=== PATIENT | female | born 1985 | race Caucasian/White ===

== ENCOUNTER 2018-01-27 21:23 | Emergency (ER) | payer MEDICAID ==
[~2018-01-27] VITALS: Ht 152.4 cm; Wt 66.7 kg
[2018-01-27 21:46] VITALS: BP 116/75
--- NOTE | 2018-01-27 21:52 | NUR ---
PT PRESENTS TO ED WITH LOWE, N/V, AND SEIZURES X2 HRS AGO. PT STATES LOWE PAIN 10/10 WITH N/V. SHE STATES SEIZURE WAS WITNESSED AT HOME BY FATHER AND WAS 30 SEC LONG. SEIZURE PRECAUTIONS IN PLACE. A&OX4. LUNGS CLEAR BILAT. PT STATES RIGHT UPPER MOLAR PAIN AFTER SEIZURE. VSS AT THIS TIME. POSITIONED IN BE DWITH HOB ELEVATED. ER AWARE. CONTINUE TO MONITOR.
--- NOTE | 2018-01-27 21:52 | NUR ---
TO LOBBY A/W BED, KANDIS MIDDLETON NOTED
[2018-01-27] MEDS ORDERED: NACL 0.9% 1,000 ML IV ONE (22:50)
[2018-01-27] MEDS ORDERED: HYDROmorphone PFS 2 MG/ML SYR IVP ONE (22:50)
[2018-01-27] MEDS ORDERED: ONDANSETRON 4 MG/2 ML VIAL IVP ONE (22:50)
[2018-01-27 23:43] LABS: BASOPHILS % (AUTO) 0.4 % (0.0-2.0); EOSINOPHILS # (AUTO) 0.2 K/uL (0-0.4); EOSINOPHILS % (AUTO) 1.9 % (0.0-4.0); HEMATOCRIT 42.2 % (36-48); HEMOGLOBIN 14.1 g/dL (12.0-16.0); LYMPHOCYTES # (AUTO) 2.4 K/uL (2.5-16.5); LYMPHOCYTES % (AUTO) 28.7 % (20.5-51.1); MEAN CORPUSCULAR HEMOGLOBIN 30 pg (27-31); MEAN CORPUSCULAR HGB CONC 34 g/dL (33-37); MEAN CORPUSCULAR VOLUME 88.6 fL (80-94); MONOCYTES # (AUTO) 0.4 K/uL (0.8-1.0); MONOCYTES % (AUTO) 4.7 % (1.7-9.3); NEUTROPHILS # (AUTO) 5.4 K/uL (1.8-7.7); NEUTROPHILS % (AUTO) 64.3 % (42.2-75.2); PLATELET COUNT (AUTO) 424 K/uL (140-450); RED BLOOD CELL COUNT(AUTO) 4.76 MIL/uL (4.20-5.40); RED CELL DISTRIBUTION WIDTH 14.3 % (11.6-13.7); WHITE BLOOD COUNT (AUTO) 8.5 K/uL (4.8-10.8)
[2018-01-27 23:56] LABS: ALBUMIN 4.1 g/dL (3.4-5.0); ANION GAP 12.6 (8-16); CARBON DIOXIDE 25.6 mmol/L (21-32); CREATININE 0.6 mg/dL (0.6-1.3); POTASSIUM 4.2 mmol/L (3.5-5.1); TOTAL BILIRUBIN 0.4 mg/dL (0.0-1.0)
[2018-01-28 00:16] LABS: APPEARANCE,URINE CLEAR (CLEAR); BILIRUBIN,URINE NEGATIVE (NEGATIVE); BLOOD, URINE NEGATIVE (NEGATIVE); COLOR,URINE YELLOW (YELLOW); LEUKOCYTE ESTERASE ,URINE NEGATIVE (NEGATIVE); NITRITE, URINE NEGATIVE (NEGATIVE); UGLUCOSE NEGATIVE (NEGATIVE)
[2018-01-28 00:24] LABS: BARBITURATE, URINE NEG. ng/ml (NEG <=200); BENZODIAZEPINE, URINE NEG. ng/mL (NEG <=200); CANNABINOID, URINE NEG. ng/mL (NEG <=50); COCAINE, URINE NEG. ng/mL (NEG <=300); OPIATE, URINE POS. ng/mL (NEG <=2000); PHENCYCLIDINE SCREEN,URINE NEG. ng/mL (NEG <=25)
[2018-01-28 00:48] VITALS: BP 107/77
--- NOTE | 2018-01-28 00:48 | NUR ---
LATE NOTE ENTRY: NS ENDED AT 0048
== END 2018-01-28 00:49 | disposition home or self-care (01) ==
LOC: MED 21:23
DX: R11.2 Nausea with vomiting, unspecified (principal); R56.9 Unspecified convulsions; R51 Headache; Z88.8 Allergy status to other drugs, medicaments and biological substances; Z88.6 Allergy status to analgesic agent
CPT/HCPCS: 36415; 80053; 80173; 80305; 81002; 81003; 81025; 85025; 96361; 96374; 96375; 99284; J1170; J2405; J7030

== ENCOUNTER 2018-03-02 01:36 | Emergency (ER) | payer MEDICAID, MEDICARE ==
[~2018-03-02] VITALS: Ht 152.4 cm; Wt 66.2 kg
[2018-03-02 01:50] VITALS: BP 135/101
--- NOTE | 2018-03-02 02:00 | NUR ---
Patient ambulated to bed 12. RN evaluating patient at bedside.
--- NOTE | 2018-03-02 02:15 | NUR ---
PT BIB SELF C/O LOWER ABD PAIN SINCE 2PM YESTERDAY. ABD IS ROUND, SOFT, TENDER TO LOWER QUADRANTS. PT DENIES N/V/D/ OR CONSTIPATION. PT SITTING IN BED, GRABBING STOMACH, POSITIONED TO COMFORT. HX HODGKINS LYMPHOMA, TEMPORAL ARTHRITIS
[2018-03-02] MEDS ORDERED: ONDANSETRON 4 MG ODT PO ONE (03:25)
[2018-03-02] MEDS ORDERED: fentaNYL 0.05 MG/ML VIAL IM ONE (03:25)
[2018-03-02] MEDS ORDERED: KETOROLAC 60 MG/2 ML VIAL IM ONE (03:25)
--- NOTE | 2018-03-02 03:43 | NUR ---
PT NOT LOCATED IN ER BED 12, PT ELOPED AT THIS TIME.
[2018-03-02 03:58] LABS: BARBITURATE, URINE NEG. ng/ml (NEG <=200); BENZODIAZEPINE, URINE NEG. ng/mL (NEG <=200); CANNABINOID, URINE NEG. ng/mL (NEG <=50); COCAINE, URINE NEG. ng/mL (NEG <=300); OPIATE, URINE POS. ng/mL (NEG <=2000); PHENCYCLIDINE SCREEN,URINE NEG. ng/mL (NEG <=25)
[2018-03-02 04:10] LABS: APPEARANCE,URINE SLIGHTLY HAZY (CLEAR); BILIRUBIN,URINE NEGATIVE (NEGATIVE); BLOOD, URINE NEGATIVE (NEGATIVE); COLOR,URINE YELLOW (YELLOW); LEUKOCYTE ESTERASE ,URINE NEGATIVE (NEGATIVE); NITRITE, URINE NEGATIVE (NEGATIVE); PH,URINE 6.5 (5.0-9.0); UGLUCOSE NEGATIVE (NEGATIVE)
[2018-03-02 04:12] LABS: RBC,URINE 0-5 (RARE) /HPF (0-5); WBC,URINE 0-5 (RARE) /HPF (0-5)
== END 2018-03-02 03:43 | disposition left against medical advice (07) ==
LOC: MED 01:36
DX: R10.9 Unspecified abdominal pain (principal); Z79.899 Other long term (current) drug therapy
CPT/HCPCS: 80305; 81001; 81025; 99284

== ENCOUNTER 2019-03-30 10:47 | Emergency (ER) | payer MEDICAID, MEDICARE ==
[~2019-03-30] VITALS: Ht 152.4 cm; Wt 64.9 kg
[2019-03-30 10:52] VITALS: BP 123/84
--- NOTE | 2019-03-30 10:57 | NUR ---
PT TAKEN TO ER BED 11
--- NOTE | 2019-03-30 11:03 | NUR ---
DR BRYAN AT BEDSIDE
--- NOTE | 2019-03-30 11:07 | NUR ---
C/O CONSTANT AND SEVERE HEADACHE WITH N/V X YESTERDAY. NO ALLEVIATING FACTORS. PER PTS PCP, HER LYMPHOMA HAS RETURNED AND IS THE REASON SHE IS HAVING THE HEADACHES. PATIENT HAS NOT BEEN ABLE TO KEEP DOWN HER PAIN MEDICATIONS DUE TO THE VOMITING. REQUESTING PAIN MEDICATIONS AT THIS TIME. TACHY AT 104. PT ALERT AND AWAKE. AMBULATORY WITH STEADY GAIT. BED IS DOWN, LOCKED, BED RAIL X 1, ERMD TO SEE PT. LAST SEIZURE 2 DAYS AGO. MED HX: SEIZURE, HODGKIN LYMPHOMA RX- DILAUDID
[2019-03-30] MEDS ORDERED: MORPHINE SULFATE 4 MG/ML SYR IM ONE (11:30)
--- NOTE | 2019-03-30 11:40 | NUR ---
MORPHINE IM ADMINISTERED BY LANRE RN
--- NOTE | 2019-03-30 12:09 | NUR ---
PT STATES PAIN IS 7/10 AT THIS TIME ADN STILL HURTING. PER DR BRYAN, PT NEEDS TO FOLLOW UP WITH PCP
[2019-03-30 12:10] VITALS: BP 118/81
--- NOTE | 2019-03-30 12:10 | NUR ---
Patient discharged with v/s stable. Written and verbal after care instructions given and explained REGARDING HODGKINS DISEASE. PT REQUESTING PAIN MEDICATIONS. PER DR BRYAN, PT IS TO TAKE HER PRESCRIPTION OF DILUADID AT HOME Patient verbalized understanding. Ambulatory with steady gait. All questions addressed prior to discharge. Advised to CONTINUE FOLLOWING UP WITH PCP AND ONCOLOGIST PT GIVEN EXCUSE FOR WORK
[2019-03-30 12:22] LABS: BARBITURATE, URINE NEG. ng/ml (NEG <=200); BENZODIAZEPINE, URINE NEG. ng/mL (NEG <=200); CANNABINOID, URINE NEG. ng/mL (NEG <=50); COCAINE, URINE NEG. ng/mL (NEG <=300); OPIATE, URINE NEG. ng/mL (NEG <=2000); PHENCYCLIDINE SCREEN,URINE NEG. ng/mL (NEG <=25)
== END 2019-03-30 12:10 | disposition home or self-care (01) ==
LOC: MED 10:47
DX: R51 Headache (principal); C81.98 Hodgkin lymphoma, unspecified, lymph nodes of multiple sites; Z86.69 Personal history of other diseases of the nervous system and sense organs; Z98.890 Other specified postprocedural states; Z88.8 Allergy status to other drugs, medicaments and biological substances
CPT/HCPCS: 80305; 81025; 96372; 99283; J2270

== ENCOUNTER 2019-08-13 15:53 | Emergency (ER) | payer BC, MEDICAID ==
[~2019-08-13] VITALS: Ht 152.4 cm; Wt 62.6 kg
[2019-08-13 15:54] VITALS: BP 119/84
--- NOTE | 2019-08-13 16:10 | NUR ---
AFTER TRIAGING, PT STATES SHE NEEDS TO GO CHECK ON HER SON IN THE CAR
--- NOTE | 2019-08-13 16:24 | NUR ---
PATIENT LEFT WITHOUT BEING SEEN BY DR. IRCE. NO FURTHER CARE PROVIDED FOR PATIENT.
--- NOTE | 2019-08-13 16:24 | NUR ---
CALLED IN ER LOBBY FOR PT, NO ANSWER
== END 2019-08-13 16:24 | disposition left against medical advice (07) ==
LOC: MED 15:53
DX: R51 Headache (principal); R11.10 Vomiting, unspecified; C81.90 Hodgkin lymphoma, unspecified, unspecified site; Z53.21 Procedure and treatment not carried out due to patient leaving prior to being seen by health care provider

== ENCOUNTER 2020-01-25 17:32 | Emergency (ER) | payer MEDICAID ==
[~2020-01-25] VITALS: Ht 152.4 cm; Wt 61.2 kg
[2020-01-25 17:47] VITALS: BP 128/86
--- NOTE | 2020-01-25 17:47 | NUR ---
Pt taken to bed 4.
--- NOTE | 2020-01-25 17:58 | NUR ---
Patient being evaluated by Dr. Brown at bedside.
--- NOTE | 2020-01-25 18:00 | NUR ---
Pt c/o pounding headache with n/v x yesterday. Pt has hx of remission hodgkin's/glioblastoma, seizure; states pain is 10/10 at this time and cannot bear down anything. SKIN IS PINK/WARM/DRY; AAOX4 WITH EVEN AND STEADY GAIT; LUNGS CLEAR BL; HR EVEN AND REGULAR; PT DENIES ANY FEVER, CP, SOB, OR COUGH AT THIS TIME; VSS BUT PT PRESENTS WITH TACHYCARDIA; PATIENT POSITIONED FOR COMFORT; HOB ELEVATED; BEDRAILS UP X2; BED DOWN. ER MD MADE AWARE OF PT STATUS.
[2020-01-25] MEDS ORDERED: diphenhydrAMINE 50 MG/ML VIAL IVP ONE (18:10)
[2020-01-25] MEDS ORDERED: NACL 0.9% 500 ML IV ONE (18:10)
[2020-01-25] MEDS ORDERED: HYDROmorphone PFS 2 MG/ML SYR IVP ONE (18:10)
--- NOTE | 2020-01-25 19:09 | NUR ---
RECEIVED REPORT FROM JOE ZAMUDIO FOR CONTINUITY OF CARE.
--- NOTE | 2020-01-25 19:13 | NUR ---
Pt report given to JOE PAPPAS. Transfer of care at this time.
--- NOTE | 2020-01-25 19:20 | NUR ---
IV removed, catheter intact and site benign. Applied folded 4x4 gauze and tape to stop bleeding.
[2020-01-25 19:23] VITALS: BP 122/85
--- NOTE | 2020-01-25 19:23 | NUR ---
Patient discharged with v/s stable. Written and verbal after care instructions given and explained. Patient alert, oriented and verbalized understanding of instructions. Ambulatory with steady gait. All questions addressed prior to discharge. ID band removed. Patient advised to follow up with PMD. Rx of DILAUDID & NARCAN given. Patient educated on indication of medication including possible reaction and side effects. Opportunity to ask questions provided and answered.
== END 2020-01-25 19:23 | disposition home or self-care (01) ==
LOC: MED 17:32
DX: G43.909 Migraine, unspecified, not intractable, without status migrainosus (principal); R11.2 Nausea with vomiting, unspecified; Z85.71 Personal history of Hodgkin lymphoma; Z88.8 Allergy status to other drugs, medicaments and biological substances
CPT/HCPCS: 70450; 81002; 81025; 96374; 96375; 99284; J1170; J1200; J7030

== ENCOUNTER 2020-01-26 17:26 | Emergency (ER) | payer MEDICAID ==
[~2020-01-26] VITALS: Ht 152.4 cm; Wt 61.2 kg
[2020-01-26 17:33] VITALS: BP 122/85
--- NOTE | 2020-01-26 19:03 | NUR ---
34 YO FEMALE C/O N/V, SEVERE HEADACHE X YESTERDAY. SEEN HERE YESTERDAY SAME S/S. MED HX: HODGKINS LYMPHOMA, GLIOBLASTOMA, SEIZURE
[2020-01-26] MEDS ORDERED: NACL 0.9% 1,000 ML IV ONE (19:20)
[2020-01-26] MEDS ORDERED: HALOPERIDOL IM 5 MG/ML VIAL IM ONE (19:20)
[2020-01-26] MEDS ORDERED: diphenhydrAMINE 50 MG/ML VIAL IVP ONE (19:20)
[2020-01-26] MEDS ORDERED: HALOPERIDOL IM 5 MG/ML VIAL ONE (20:28)
[2020-01-26] MEDS ORDERED: diphenhydrAMINE 50 MG/ML VIAL ONE (20:28)
[2020-01-26] MEDS ORDERED: HYDROmorphone 1 MG/ML AMP ONE (20:50)
== END 2020-01-26 22:25 | disposition home or self-care (01) ==
LOC: MED 17:26
DX: G43.909 Migraine, unspecified, not intractable, without status migrainosus (principal); R11.2 Nausea with vomiting, unspecified; R50.9 Fever, unspecified
CPT/HCPCS: 81025; 99282; J1170; J1200; J1630

== ENCOUNTER 2020-01-28 18:59 | Emergency (ER) | payer MEDICAID ==
[~2020-01-28] VITALS: Ht 152.4 cm; Wt 61.2 kg
[2020-01-28 19:11] VITALS: BP 124/76
--- NOTE | 2020-01-28 19:16 | NUR ---
ambulated to bed 03 with steady gait.
--- NOTE | 2020-01-28 19:40 | NUR ---
PT AAOX4 FOLLOWING COMMANDS, C/O LOWE 02/20, PT HAS HX HODGKINS LYMPHOMA, GLIOBLASTOMA WITH " PSUEDO SEIZURES" PER PT. DENIES LIGHTHEADEDNESS @ THIS TIME. PALPABLE PULSES, LUNG CLEAR EVEN UNLABORED. SKIN INTACT. CARLEEN N/V/D. JOERNEY LOCKED IN LOWEST POSITION, SZR PRECAUTIONS IN PLACE HX: HODGKINS LYMPHOMA, GLIOBLASTOMA RX: PT UNABLE TO REMEMBER
[2020-01-28] MEDS ORDERED: MORPHINE SULFATE 2 MG/ML SYR IVP ONE (20:00)
[2020-01-28] MEDS ORDERED: diphenhydrAMINE 50 MG/ML VIAL IVP ONE (20:00)
[2020-01-28] MEDS ORDERED: MORPHINE SULFATE 2 MG/ML SYR IM ONE (20:40)
[2020-01-28] MEDS ORDERED: diphenhydrAMINE 50 MG/ML VIAL IM ONE (20:40)
[2020-01-28 20:50] VITALS: BP 121/72
--- NOTE | 2020-01-28 20:50 | NUR ---
Patient discharged with v/s stable. Written and verbal after care instructions given and explained. Patient verbalized understanding. Ambulatory with steady gait. All questions addressed prior to discharge. Advised to follow up with PMD.
== END 2020-01-28 20:50 | disposition home or self-care (01) ==
LOC: MED 18:59
DX: G43.909 Migraine, unspecified, not intractable, without status migrainosus (principal); R56.9 Unspecified convulsions; Z85.9 Personal history of malignant neoplasm, unspecified; Z88.8 Allergy status to other drugs, medicaments and biological substances; Z88.6 Allergy status to analgesic agent; Z98.890 Other specified postprocedural states
CPT/HCPCS: 96372; 99284; J1200; J2270

== ENCOUNTER 2020-03-20 14:12 | Emergency (ER) | payer MEDICAID ==
[~2020-03-20] VITALS: Ht 152.4 cm; Wt 63.5 kg
[2020-03-20 14:20] VITALS: BP 126/81
--- NOTE | 2020-03-20 14:25 | NUR ---
PATIENT PRESENTS TO ED WITH C/O HEADACHE, HEAD PAIN . PT STATES HISTORY OF CRANIOTOMY X 2 . DENIES N/V/D; SKIN IS PINK/WARM/DRY; AAOX4 WITH EVEN AND STEADY GAIT; LUNGS CLEAR BL; HR EVEN AND REGULAR; PT DENIES ANY FEVER, CP, SOB, OR COUGH AT THIS TIME; VSS; PATIENT POSITIONED FOR COMFORT; HOB ELEVATED; BEDRAILS UP X2; BED DOWN. ER MD MADE AWARE OF PT STATUS.
--- NOTE | 2020-03-20 14:30 | NUR ---
DR. RAMSAY AT BEDSIDE FOR EXAM
[2020-03-20] MEDS ORDERED: diphenhydrAMINE 50 MG/ML VIAL IVP ONE (14:40)
[2020-03-20] MEDS ORDERED: NACL 0.9% 1,000 ML IV ONE (14:40)
[2020-03-20] MEDS ORDERED: HYDROmorphone PFS 2 MG/ML SYR IVP ONE ×2 (14:40→16:30)
--- NOTE | 2020-03-20 15:50 | NUR ---
PT WITH POOR VENOUS ACCESS. 24 G SL ESTABLISHED RIGHT WRIST
[2020-03-20 17:15] VITALS: BP 126/81
== END 2020-03-20 17:19 | disposition home or self-care (01) ==
LOC: MED 14:12
DX: G43.909 Migraine, unspecified, not intractable, without status migrainosus (principal); C85.90 Non-Hodgkin lymphoma, unspecified, unspecified site; R56.9 Unspecified convulsions; Z88.6 Allergy status to analgesic agent; Z88.8 Allergy status to other drugs, medicaments and biological substances; Z85.9 Personal history of malignant neoplasm, unspecified
CPT/HCPCS: 96374; 96375; 99284; J1170; J1200

== ENCOUNTER 2020-03-21 11:17 | Emergency (ER) | payer MEDICAID ==
[~2020-03-21] VITALS: Ht 162.6 cm; Wt 63.5 kg
--- NOTE | 2020-03-21 11:21 | NUR ---
PT TAKEN TO BED 11.
[2020-03-21 11:27] VITALS: BP 134/96
--- NOTE | 2020-03-21 11:32 | NUR ---
PATIENT ELOPED FROM FACILITY. DISCHARGE INSTRUCTIONS NOT GIVEN TO PATIENT. NOTIFIED.
== END 2020-03-21 11:36 | disposition left against medical advice (07) ==
LOC: MED 11:17
DX: G89.29 Other chronic pain (principal); G43.909 Migraine, unspecified, not intractable, without status migrainosus
CPT/HCPCS: 99281

== ENCOUNTER 2020-05-10 13:52 | Emergency (ER) | payer MEDICAID ==
--- NOTE | 2020-05-10 14:58 | NUR ---
pt left without beeing seen or triaged. Dr. Naranjo made aware.
== END 2020-05-10 14:38 | disposition left against medical advice (07) ==
LOC: MED 13:52
DX: Z53.21 Procedure and treatment not carried out due to patient leaving prior to being seen by health care provider (principal)

== ENCOUNTER 2020-10-31 10:13 | Emergency (ER) | payer MEDICAID ==
[~2020-10-31] VITALS: Ht 152.4 cm; Wt 63.5 kg
[2020-10-31 10:19] VITALS: BP 121/89
[2020-10-31] MEDS ORDERED: ONDANSETRON 4 MG/2 ML VIAL IVP ONE (10:55)
[2020-10-31] MEDS ORDERED: diphenhydrAMINE 50 MG/ML VIAL IVP ONE ×2 (10:55→12:45)
[2020-10-31] MEDS ORDERED: NACL 0.9% 1,000 ML IV ONE (10:55)
[2020-10-31] MEDS ORDERED: HYDROmorphone PFS 2 MG/ML SYR IVP ONE ×2 (10:55→12:45)
[2020-10-31 14:20] LABS: ALBUMIN 3.3 g/dL (3.4-5.0); ANION GAP 18.6 (8-16); CARBON DIOXIDE 16.4 mmol/L (21-32); CREATININE 0.5 mg/dL (0.6-1.3); MAGNESIUM 1.8 mg/dL (1.8-2.4); PHOSPHORUS 2.7 mg/dL (2.5-4.9); TOTAL BILIRUBIN 0.4 mg/dL (0.0-1.0)
[2020-10-31 14:25] VITALS: BP 115/70
[2020-10-31 14:25] LABS: BILIRUBIN,URINE NEGATIVE (NEGATIVE); BLOOD, URINE 2+ (NEGATIVE); COLOR,URINE YELLOW (YELLOW); LEUKOCYTE ESTERASE ,URINE NEGATIVE (NEGATIVE); NITRITE, URINE NEGATIVE (NEGATIVE); UGLUCOSE NEGATIVE (NEGATIVE)
[2020-10-31 14:52] LABS: APPEARANCE,URINE SLIGHTLY HAZY (CLEAR)
[2020-10-31 14:56] LABS: RBC,URINE 0-5 /HPF (0-5); WBC,URINE 0-5 /HPF (0-5)
== END 2020-10-31 14:25 | disposition home or self-care (01) ==
LOC: MED 10:13
DX: R51.9 Headache, unspecified (principal); R11.2 Nausea with vomiting, unspecified; Z98.890 Other specified postprocedural states; Z85.71 Personal history of Hodgkin lymphoma; Z88.8 Allergy status to other drugs, medicaments and biological substances
CPT/HCPCS: 36415; 80053; 81001; 81025; 83690; 83735; 84100; 87086; 96361; 96374; 96375; 96376; 99284; J1170; J1200; J2405; J7030

== ENCOUNTER 2020-11-01 18:39 | Emergency (ER) | payer MEDICAID ==
[~2020-11-01] VITALS: Ht 152.4 cm; Wt 69.4 kg
[2020-11-01 18:50] VITALS: BP 133/91
--- NOTE | 2020-11-01 19:20 | NUR ---
See patient assessment for more information. Patient laying in bed, locked in lowest position, HOB elevated, x2 siderails up for patient safety, seizure precautions in place. Breathing even and unlabored. NAD noted, will continue to monitor. at bedside.
--- NOTE | 2020-11-01 19:26 | NUR ---
Dr. Reynoso examining patient.
[2020-11-01] MEDS ORDERED: MORPHINE SULFATE 4 MG/ML SYR IVP ONE ×2 (19:30→20:20)
[2020-11-01] MEDS ORDERED: ONDANSETRON 4 MG/2 ML VIAL IVP ONE ×2 (19:30→20:20)
[2020-11-01] MEDS ORDERED: NACL 0.9% 1,000 ML IV ONE (19:30)
[2020-11-01] MEDS ORDERED: diphenhydrAMINE 50 MG/ML VIAL IVP ONE ×2 (19:30→20:20)
--- NOTE | 2020-11-01 21:25 | NUR ---
ERMD made aware of patients headache 02/20, per ERMD patient ok to discharge, no new orders.
[2020-11-01 21:30] VITALS: BP 133/91
--- NOTE | 2020-11-01 21:30 | NUR ---
Patient discharged with v/s stable. Written and verbal after care instructions given and explained. Patient verbalized understanding. Ambulatory with steady gait accompanied by . All questions addressed prior to discharge. Advised to follow up with PMD.
== END 2020-11-01 21:30 | disposition home or self-care (01) ==
LOC: MED 18:39
DX: R51.9 Headache, unspecified (principal); R11.2 Nausea with vomiting, unspecified; Z88.8 Allergy status to other drugs, medicaments and biological substances; Z88.5 Allergy status to narcotic agent
CPT/HCPCS: 96361; 96374; 96375; 96376; 99284; J1200; J2270; J2405; J7030

== ENCOUNTER 2020-11-03 10:02 | Emergency (ER) | payer MEDICAID ==
[~2020-11-03] VITALS: Ht 152.4 cm; Wt 68.0 kg
[2020-11-03 10:07] VITALS: BP 116/80
[2020-11-03] MEDS ORDERED: MORPHINE SULFATE 4 MG/ML SYR IVP ONE ×2 (10:50→11:55)
[2020-11-03] MEDS ORDERED: ONDANSETRON 4 MG/2 ML VIAL IVP ONE (10:50)
[2020-11-03] MEDS ORDERED: diphenhydrAMINE 50 MG/ML VIAL IVP ONE (10:50)
[2020-11-03 12:22] VITALS: BP 117/84
== END 2020-11-03 12:23 | disposition home or self-care (01) ==
LOC: MED 10:02
DX: R51.9 Headache, unspecified (principal); F11.20 Opioid dependence, uncomplicated; Z88.5 Allergy status to narcotic agent; Z88.8 Allergy status to other drugs, medicaments and biological substances; Z98.890 Other specified postprocedural states; Z85.71 Personal history of Hodgkin lymphoma
CPT/HCPCS: 96374; 96375; 96376; 99284; J1200; J2270; J2405

== ENCOUNTER 2020-11-17 01:40 | Emergency (ER) | payer MEDICAID ==
[~2020-11-17] VITALS: Ht 152.4 cm; Wt 68.0 kg
[2020-11-17 02:00] VITALS: BP 132/89
[2020-11-17] MEDS ORDERED: ONDANSETRON 4 MG ODT PO ONE (03:15)
[2020-11-17] MEDS ORDERED: MORPHINE SULFATE 4 MG/ML SYR IM ONE (03:15)
[2020-11-17 03:31] VITALS: BP 132/89
== END 2020-11-17 03:30 | disposition home or self-care (01) ==
LOC: MED 01:40
DX: R51.9 Headache, unspecified (principal); K08.89 Other specified disorders of teeth and supporting structures; Z85.71 Personal history of Hodgkin lymphoma; Z88.8 Allergy status to other drugs, medicaments and biological substances; Z88.5 Allergy status to narcotic agent
CPT/HCPCS: 96372; 99283; J2270; Q0162; Q0163

== ENCOUNTER 2021-06-27 09:11 | Emergency (ER) | payer OTHER, MEDICAID ==
[~2021-06-27] VITALS: Ht 147.3 cm; Wt 76.2 kg
[2021-06-27 09:29] VITALS: BP_SYST 136
--- NOTE | 2021-06-27 09:46 | NUR ---
PT AMBULATED TO ER BED 14.
[2021-06-27] MEDS ORDERED: HYDROmorphone PFS 2 MG/ML SYR IVP ONE (10:15)
--- NOTE | 2021-06-27 10:34 | NUR ---
pt c/o headache with n/v x1 day. pt hx of ca received chemo x2 weeks ago. us guided iv inserted to right upper arm #[id number] blood drawn and medicated per order.
--- NOTE | 2021-06-27 10:40 | NUR ---
pt requesting to leave ama after receiving dilaudid IV. Dr Urbano aware. pt signed ama form. IV removed no active bleeding noted. pt ambulates with steady gait. in lobby for safe dc.
--- NOTE | 2021-06-27 10:45 | NUR ---
Patient does not wish to proceed with medical care recommended by DR GUARDADO. Patient given information related to possible complications, up to and including , which could occur as a result of leaving hospital at this time. Patient verbalizes understanding of risks involved leaving against medical advice. Patient has signed AMA form.
--- NOTE | 2021-06-27 10:50 | NUR ---
[place] mei in ED - 06/27/21 at 1053 by [email or web address] pt requesting to leave ama after receiving dilaudid. iv removed no active bleeding. pt ambulates with steady gait.
[2021-06-27 10:53] LABS: BASOPHILS # (AUTO) 0.1 K/uL (0.00-0.22); BASOPHILS % (AUTO) 0.7 % (0.0-2.0); EOSINOPHILS # (AUTO) 0.1 K/uL (0-0.4); EOSINOPHILS % (AUTO) 1.7 % (0.0-4.0); HEMATOCRIT 37.8 % (36-48); LYMPHOCYTES # (AUTO) 1.9 K/uL (2.5-16.5); LYMPHOCYTES % (AUTO) 24.5 % (20.5-51.1); MEAN CORPUSCULAR HEMOGLOBIN 31 pg (27-31); MEAN CORPUSCULAR HGB CONC 34 g/dL (33-37); MEAN CORPUSCULAR VOLUME 91.1 fL (80-94); MONOCYTES # (AUTO) 0.4 K/uL (0.8-1.0); MONOCYTES % (AUTO) 5.7 % (1.7-9.3); NEUTROPHILS # (AUTO) 5.3 K/uL (1.8-7.7); NEUTROPHILS % (AUTO) 67.4 % (42.2-75.2); PLATELET COUNT (AUTO) 360 K/uL (140-450); RED BLOOD CELL COUNT(AUTO) 4.15 MIL/uL (4.20-5.40); RED CELL DISTRIBUTION WIDTH 13.8 % (11.6-13.7); WHITE BLOOD COUNT (AUTO) 7.8 K/uL (4.8-10.8)
[2021-06-27 10:54] VITALS: BP 127/70
[2021-06-27 11:25] LABS: ALBUMIN 3.5 g/dL (3.4-5.0); ANION GAP 14.4 (8-16); CARBON DIOXIDE 24.8 mmol/L (21-32); CREATININE 0.6 mg/dL (0.6-1.3); MAGNESIUM 1.9 mg/dL (1.8-2.4); PHOSPHORUS 2.3 mg/dL (2.5-4.9); POTASSIUM 4.2 mmol/L (3.5-5.1); TOTAL BILIRUBIN 0.3 mg/dL (0.0-1.0)
== END 2021-06-27 10:45 | disposition left against medical advice (07) ==
LOC: MED 09:11
DX: R51.9 Headache, unspecified (principal); R56.9 Unspecified convulsions; Z88.8 Allergy status to other drugs, medicaments and biological substances; Z88.1 Allergy status to other antibiotic agents; Z98.890 Other specified postprocedural states; Z85.71 Personal history of Hodgkin lymphoma
CPT/HCPCS: 36415; 80053; 81002; 81025; 83735; 84100; 84484; 85025; 93005; 96374; 99284; J1170

== ENCOUNTER 2021-07-16 14:35 | Emergency (ER) | payer OTHER, MEDICAID ==
[~2021-07-16] VITALS: Ht 152.4 cm; Wt 65.8 kg
[2021-07-16] MEDS ORDERED: diphenhydrAMINE 50 MG/ML VIAL IVP ONE (14:50)
[2021-07-16] MEDS ORDERED: KETOROLAC 30 MG/ML VIAL IVP ONE (14:50)
[2021-07-16] MEDS ORDERED: DEXAMETHASONE 10 MG/ML VIAL IVP ONE (14:50)
[2021-07-16] MEDS ORDERED: METOCLOPRAMIDE 10 MG/2 ML INJ VIAL IVP ONE (14:50)
[2021-07-16 14:51] VITALS: BP 135/107
--- NOTE | 2021-07-16 14:56 | NUR ---
PT AMBULATED TO ER BED 5 WITH A STEADY GAIT.
--- NOTE | 2021-07-16 15:01 | NUR ---
35 Y/O FEMALE C/O HEADACHE 02/20 DESCRIBES THROBBING X1YEAR. PT STATES SHE HAS CANCER OF LYMPH NODES AND PSEUDOSEIZURES BUT NO RX PRESCRIBED. PT STATES +N/V. DENIES FEVER/CHILLS. PMH: HODGKINS LYMPHOMA, GLIOBLASTOMA ALLERGIES: REGLAN, TOPOMAX, COMPAZINE, SOLUMEDROL, FENERGAN AND TORADOL
--- NOTE | 2021-07-16 15:32 | NUR ---
ALEJANDRA TAVERAS FROM FACILITY, MADE AWARE. ATTEMPTED TO CALL PHONE NO ANSWER.
== END 2021-07-16 15:32 | disposition left against medical advice (07) ==
LOC: MED 14:35
DX: R51.9 Headache, unspecified (principal); R11.2 Nausea with vomiting, unspecified; Z76.5 Malingerer [conscious simulation]; Z85.71 Personal history of Hodgkin lymphoma; Z98.890 Other specified postprocedural states; Z88.1 Allergy status to other antibiotic agents; Z88.8 Allergy status to other drugs, medicaments and biological substances
CPT/HCPCS: 99281; 99283

== ENCOUNTER 2021-08-13 13:07 | Emergency (ER) | payer OTHER, MEDICAID ==
[~2021-08-13] VITALS: Ht 152.4 cm; Wt 68.0 kg
[2021-08-13 13:11] VITALS: BP 131/95
--- NOTE | 2021-08-13 13:24 | NUR ---
Patient ambulated to bed 2
[2021-08-13] MEDS ORDERED: ONDANSETRON 4 MG ODT PO ONE (13:25)
--- NOTE | 2021-08-13 13:30 | NUR ---
PT REFUSED ONDANSETRON MEDICATION ORDERED, PT STATES SHE NEEDS TO TALK TO BEFORE TAKING ANY MEDICATIONS.
--- NOTE | 2021-08-13 14:36 | NUR ---
Dr. Gomez at bedside to exam patient.
[2021-08-13] MEDS ORDERED: KETAMINE 500 MG/5 ML VIAL IM ONE (14:55)
--- NOTE | 2021-08-13 15:07 | NUR ---
PRESCRIBED KETAMINE 0.1ML, PT REFUSES MEDICATION AND WISHES TO LEAVE. DR. LONGORIA MADE AWARE.
--- NOTE | 2021-08-13 15:20 | NUR ---
Patient does not wish to proceed with medical care recommended by . Patient given information related to possible complications, up to and including , which could occur as a result of leaving hospital at this time. Patient verbalizes understanding of risks involved leaving against medical advice. Patient has signed AMA form.
== END 2021-08-13 15:26 | disposition left against medical advice (07) ==
LOC: MED 13:07
DX: G43.909 Migraine, unspecified, not intractable, without status migrainosus (principal); R11.2 Nausea with vomiting, unspecified; R19.7 Diarrhea, unspecified; J44.9 Chronic obstructive pulmonary disease, unspecified; Z88.1 Allergy status to other antibiotic agents; Z88.8 Allergy status to other drugs, medicaments and biological substances
CPT/HCPCS: 81002; 81025; 99282; Q0162

== ENCOUNTER 2021-10-17 12:47 | Emergency (ER) | payer OTHER, MEDICAID ==
[~2021-10-17] VITALS: Ht 152.4 cm; Wt 73.0 kg
[2021-10-17 12:55] VITALS: BP 141/94
--- NOTE | 2021-10-17 14:05 | NUR ---
1 CALL IN ER LOBBY N/A
[2021-10-17] MEDS ORDERED: ONDANSETRON 4 MG/2 ML VIAL IVP ONE (14:15)
--- NOTE | 2021-10-17 14:25 | NUR ---
3RD CALL N/A IN ER LOBBY. PATIENT LEFT WITHOUT BEING SEEN BY DR. GONZALEZ. NO FURTHER CARE PROVIDED FOR PATIENT.
== END 2021-10-17 14:05 | disposition left against medical advice (07) ==
LOC: MED 12:47
DX: R10.9 Unspecified abdominal pain (principal); R11.2 Nausea with vomiting, unspecified; R51.9 Headache, unspecified; Z53.21 Procedure and treatment not carried out due to patient leaving prior to being seen by health care provider

== ENCOUNTER 2021-11-01 14:53 | Emergency (ER) | payer OTHER, MEDICAID ==
[~2021-11-01] VITALS: Ht 152.4 cm; Wt 73.5 kg
[2021-11-01 15:02] VITALS: BP 129/89
--- NOTE | 2021-11-01 15:13 | NUR ---
35Y FEMALE BIB SELF WITH C/O SEIZURE APPROX 3 MINS 1 HOUR AGO AND C/O HEADACHE XTODAY. PER PATIENT THE HEADACHE STARTED THIS AM AND HAS PROGRESSIVELY GOTTEN WORSE THROUGHOUT THE DAY. CURRENT PAIN IS 10/10 AND THROBBING/PRESSURE LIKE. PT IS A&OX4 WITH STEADY GAIT. DENIES ANY CP/SOB. PMH: PSUDOSEIZURE, GLIOBLATOMA, HODGKIN'S LYMPHOMA
[2021-11-01] MEDS ORDERED: MORPHINE SULFATE 10 MG/ML VIAL ONE (15:19)
[2021-11-01] MEDS: MORPHINE SULFATE 5 MG/ML VIAL IM ONE (15:25)
[2021-11-01] MEDS: ONDANSETRON 4 MG ODT PO ONE (15:29)
[2021-11-01 15:34] VITALS: BP 129/89
== END 2021-11-01 15:34 | disposition home or self-care (01) ==
LOC: MED 14:53
DX: G43.909 Migraine, unspecified, not intractable, without status migrainosus (principal); I10 Essential (primary) hypertension; Z98.51 Tubal ligation status; Z98.890 Other specified postprocedural states
CPT/HCPCS: 81025; 96372; 99283; J2270; Q0162